=== PATIENT | male | born 1950 | race Caucasian/White ===

== ENCOUNTER 2017-11-22 06:36 | Observation (INO) | payer OTHER ==
[~2017-11-22] VITALS: Ht 180.3 cm; Wt 90.3 kg
--- NOTE | ~2017-11-22 | EKG ---
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
--- NOTE | ~2017-11-22 | CATHLAB ---
[facility] [address] [place] [address] INVASIVE PROCEDURE REPORT Name: RSOARIO GREEN Room #: 219-P ADM IN M.R.#: [id number] Admission: 11/22/17 Attend Phys: Pepe Moctezuma, Discharge: Date of : 54 Date of Service: 11/22/17 1259 Report #: [id number] THIS REPORT FOR: //name// APPROVED REPORT Study performed: 11/22/2017 07:21:15 Patient Details Patient Status: Out-Patient Room #: The patient is a 67 year-old male Event Personnel Pepe Moctezuma Subassembly Assembler, Filippo Fuller RN, Samantha, Cristal Monitor, Giancarlo Courtney Scrub Procedures Performed Art Access - R femoral artery* 54258 Initial Mod Sed Same Phys/QHP Gr5y 661862 55786 Mod Sed Same Phys/QHP Ea 323959 Left Heart Cath w/or w/o Coronaries [id number] [facility] Aortogram Abdominal Peripheral Angio 433464 [facility] Place w/wo Plasty Single RCA 690825 Hemostasis w/ Mynx Indication Chest pain Procedure Narrative The patient was brought electively to the Cardiac Catheterization Laboratory and was prepped and draped in a sterile manner. The Right Groin^ was infiltrated with 1% Lidocaine subcutaneous anesthesia. A PINNACLE 6FR Sheath #[id number] sheath was inserted into the RFA^. Coronary angiography was performed using coronary diagnostic catheters. The right coronary system was accessed and visualized with a JR 4 catheter. The left coronary system was accessed and visualized with a JL 4 catheter. The left ventricle was accessed and visualized with a Pigtail catheter. Left ventriculogram was performed in RODRIGUEZ projection. An aortogram of the abdominal aorta was performed. Closure device was deployed with a 6 Fr Mynx. The patient tolerated the procedure well and there were no complications associated with the procedure. There was no hematoma. Intraoperative Conscious Sedation Sedation start time: 08:29 Case end Time: 09:03 Fentanyl 50 mcg Versed 1.[address] [address] INVASIVE PROCEDURE REPORT Name: PETERROSARIO ELDA Room #: 219-P [facility] IN ..#: [id number] Admission: 11/22/17 Attend Phys: Pepe Moctezuma, Discharge: Date of : 54 Date of Service: 11/22/17 1259 Report #: [id number] Fluoro Time: 5.40 minutes Dose: DAP 7833.70 cGycm2 932 mGy Contrast Type and Amount: Omnipaque 150 ml Hemodynamics The aortic pressure is 125/63 mmHg with a mean of 80 mmHg. The left ventricular pressure is 127/10 mmHg with a mean of mmHg. The left ventricular end diastolic pressure is 21 mmHg. PCI Technique Lesion Percutaneous coronary intervention was performed on the mid right coronary artery. A LAUNCHER 6FR JR 4 #[id number] Guide Catheter was used to engage the ostium. A Luge Wire .014 x 182CM #[id number] Interventional Guidewire was used to cross the lesion. BALLOON DILATION A Balloon catheter Sprinter OTW 2.5 x 12 #[id number] was inserted and inflated up to 12.00atm for 35seconds. Additional Inflation: 12.00atm for 43seconds. STENT DEPLOYMENT A drug-eluting stent RESOLUTE OTW 2.75 X 12 #[id number] was inserted and inflated up to 14.00atm for 29seconds. Additional Inflation: 18.00atm for 32seconds. Conclusion #1 successful PTCA stent of subtotaled mid RCA lesion to 0% with placement of a 2.75 x 12 resolute drug-eluting stent postdilated 3.0 mm #2 left main free of disease giving rise to LAD and circumflex #3 circumflex OM system as a 3040% proximal mid vessel lesion nondominant but moderate in size and #4 normal left ventricular size with inferior apical hypokinesis EF 50% range #6 abdominal aortogram revealing a small infrarenal aortic aneurysm with ectasia will correlate with ultrasound Recommendations and plan continue aggressive risk factor modification dual antiplatelet therapy times one year. Transferred in stable condition pain free without EKG changes to CCU There was significant collateral filling from the left system to the PDA CAMILO so no new damage occurred. <ELECTRONICALLY SIGNED> By: Pepe Moctezuma MD, [facility] 11/22/17 1259 1259 1259 Pepe Moctezuma MD, FACC /INF
--- NOTE | ~2017-11-22 | EKG ---
[place] [address] [facility] [place] [address] ELECTROCARDIOGRAM REPORT Name: ROSARIO GREEN Room #: 219-P [facility] M.R.#: [id number] Admission: 11/22/17 Attend Phys: Pepe Moctezuma MD, Discharge: Date of : 54 Report #: [id number] THIS REPORT FOR: //name// [facility] Test Date: 2017-11-22 Test Time: 11:11:11 Pat Name: ROSARIO GREEN Department: Room: 219 P Gender: M Schedule Maker: JAROCHO : 1950 Requested By: Pepe Moctezuma Order Number: [id number] MD: Dami Salas Measurements Intervals [place] Rate: 53 P: 28 MT: 191 QRS: 52 QRSD: 112 T: -19 QT: 445 QTc: 418 Interpretive Statements Sinus bradycardia Small inferior Q waves Compared to ECG 11/22/2017 07:10:19 No significant change was found Electronically Signed On 11-22-2017 15:42:39 CDT by Dami Salas [email or web address] <ELECTRONICALLY SIGNED> By: Dami Salas MD, [facility] 11/22/17 1542 1111 1111 Dami Salas MD, FACC /EPI
--- NOTE | ~2017-11-22 | EKG ---
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 : 1950 Requested By: Pepe Moctezuma Order Number: [id number] MD: Nav Reese Measurements Intervals [place] Rate: 57 P: 42 [place]: 193 QRS: 66 QRSD: 110 T: -4 QT: 432 QTc: 421 Interpretive Statements Sinus rhythm Low voltage, extremity leads Compared to ECG 06/24/2003 06:26:46 Low QRS voltage now present Sinus bradycardia no longer present Ventricular premature complex(es) no longer present Myocardial infarct finding no longer present Electronically Signed On 11-22-2017 8:01:43 CDT by Nav Reese [email or web address] <ELECTRONICALLY SIGNED> By: Nav Reese MD 11/22/17 0801 0710 9 Nav Reese MD /EPI
[2017-11-22] MEDS ORDERED: ASPIR 8181 MG PO (07:02)
[2017-11-22] MEDS ORDERED: TOPROL XL25 MG PO (07:03)
[2017-11-22] MEDS ORDERED: MULTIVITAMINS1 EAC7 PO (07:03)
[2017-11-22] MEDS ORDERED: LIPITOR80 MG PO (07:03)
[2017-11-22] MEDS ORDERED: RAMIPRIL2.5 MG PO (07:03)
[2017-11-22] MEDS ORDERED: FISH OIL 1,001000 M2 PO (07:03)
[2017-11-22 07:24] VITALS: BP 128/78
[2017-11-22 10:00] VITALS: BP 117/64
[2017-11-22 10:58] LABS: CALCIUM 8.6 mg/dL (8.5-10.1); CREATININE 0.8 mg/dL (0.7-1.3); POTASSIUM 4.2 mmol/L (3.5-5.1)
[2017-11-22 12:02] VITALS: BP 124/74
[2017-11-22 15:00] VITALS: BP 129/72
[2017-11-22 20:27] VITALS: BP 133/67
[2017-11-22 23:17] VITALS: BP 123/61
[2017-11-23 03:39] VITALS: BP 123/73
[2017-11-23 03:58] LABS: HEMATOCRIT 43.5 % (42.0-52.0); HEMOGLOBIN 14.7 gm/dL (14.0-18.0); MCH 30.4 pg (26.0-34.0); MCHC 33.7 g/dL (28.0-37.0); MCV 90.1 fL (80.0-100.0); RBC 4.83 mil/uL (4.50-6.00); RDW 13.8 % (10.5-14.5); WBC 8.8 thou/uL (4.0-11.0)
[2017-11-23] MEDS ORDERED: ASPIRIN325 PO (07:49)
[2017-11-23] MEDS ORDERED: CLOPIDOGREL75 MG PO (07:49)
[2017-11-23 07:53] VITALS: BP 131/75
[2017-11-23 09:27] VITALS: BP 131/75
[2017-11-23 10:03] VITALS: BP 131/75
== END 2017-11-23 10:30 | disposition home or self-care (01) ==
LOC: CATH 06:36 → 2N 08:51 → CATH 14:36 → 2N 11-23 10:30
PROVIDERS: Internal Medicine Cardiovascular Disease
DX: I25.10 Atherosclerotic heart disease of native coronary artery without angina pectoris (principal); I10 Essential (primary) hypertension; E78.00 Pure hypercholesterolemia, unspecified; I65.29 Occlusion and stenosis of unspecified carotid artery; J44.9 Chronic obstructive pulmonary disease, unspecified; I25.2 Old myocardial infarction; F17.210 Nicotine dependence, cigarettes, uncomplicated; Z72.89 Other problems related to lifestyle; Z95.5 Presence of coronary angioplasty implant and graft

== ENCOUNTER → 2020-03-20 | Outpatient (CLI) | payer OTHER ==
[~2020-03-20] MED LIST: ASPIR 8181 MG PO; ASPIRIN325 PO; CLOPIDOGREL75 MG PO; FISH OIL 1,001000 M2 PO; LIPITOR80 MG PO; MULTIVITAMINS1 EAC7 PO; RAMIPRIL2.5 MG PO; TOPROL XL25 MG PO
== END ==
LOC: SJCVC 08:57 → SJCVCIMAG 08:57
PROVIDERS: ATTEND Internal Medicine Cardiovascular Disease
DX: I25.10 Atherosclerotic heart disease of native coronary artery without angina pectoris (principal); I65.23 Occlusion and stenosis of bilateral carotid arteries; I71.9 Aortic aneurysm of unspecified site, without rupture; I10 Essential (primary) hypertension; E78.00 Pure hypercholesterolemia, unspecified

== ENCOUNTER → 2020-11-20 | Outpatient (CLI) | payer OTHER | LOC: SJCVC 09:40 | PROVIDERS: ATTEND Internal Medicine Cardiovascular Disease | DX: R94.31 Abnormal electrocardiogram [ECG] [EKG] (principal); I25.10 Atherosclerotic heart disease of native coronary artery without angina pectoris; I10 Essential (primary) hypertension; E78.00 Pure hypercholesterolemia, unspecified; I71.9 Aortic aneurysm of unspecified site, without rupture; J44.9 Chronic obstructive pulmonary disease, unspecified; R06.00 Dyspnea, unspecified; E78.5 Hyperlipidemia, unspecified; Z87.891 Personal history of nicotine dependence; Z72.89 Other problems related to lifestyle; Z79.82 Long term (current) use of aspirin; Z79.899 Other long term (current) drug therapy ==

== ENCOUNTER → 2021-01-25 | Outpatient (CLI) | payer OTHER | LOC: SJCVCIMAG 07:33 | PROVIDERS: ATTEND Internal Medicine Cardiovascular Disease | DX: I77.811 Abdominal aortic ectasia (principal) ==